=== PATIENT | male | born 1980 | race Asian ===

== ENCOUNTER 2017-05-15 09:00 | Emergency (ER) | payer OTHER ==
[2017-05-15 11:04] VITALS: BP 127/89
== END 2017-05-15 11:04 | disposition home or self-care (01) ==
LOC: ED 09:00
DX: G44.209 Tension-type headache, unspecified, not intractable (principal); J45.909 Unspecified asthma, uncomplicated

== ENCOUNTER 2019-02-17 21:25 | Emergency (ER) | payer OTHER ==
[~2019-02-17] VITALS: Ht 172.7 cm; Wt 99.3 kg
[2019-02-17 21:38] VITALS: Ht 172.7 cm; Wt 99.3 kg
[2019-02-17 23:07] VITALS: BP 133/58
== END 2019-02-17 23:07 | disposition home or self-care (01) ==
LOC: ED 21:25
DX: S61.052A Open bite of left thumb without damage to nail, initial encounter (principal); J45.909 Unspecified asthma, uncomplicated; W54.0XXA Bitten by dog, initial encounter; Y93.89 Activity, other specified; Y92.89 Other specified places as the place of occurrence of the external cause; Y99.8 Other external cause status
CPT/HCPCS: 90715